=== PATIENT | male | born 1940 | race Caucasian/White ===

== ENCOUNTER 2018-06-19 09:30 | Day surgery (SDC) | payer OTHER, BC ==
[2018-06-19] MEDS ORDERED: LIDOCAINE 1% 2 ML INJ ONE (10:07)
[2018-06-19] MEDS ORDERED: LIDOCAINE 1% 2 ML INJ ID PRN (10:09)
[2018-06-19] MEDS ORDERED: LR 1,000 ML IV ONE (10:09)
--- NOTE | 2018-06-19 10:31 | PDANEPAE ---
ANE History of Present Illness J tube removal ANE Past Medical History - Cardiovascular History Hx Hypertension: No Hx Arrhythmias: No Hx Chest Pain: No Hx Coronary Artery / Peripheral Vascular Disease: No Hx CHF / Valvular Disease: No Hx Palpitations: No - Pulmonary History Hx COPD: No Hx Asthma/Reactive Airway Disease: No Hx Recent Upper Respiratory Infection: No Hx Oxygen in Use at Home: No Hx Sleep Apnea: Yes Sleep Apnea Screening Result - Last Documented: Positive Pulmonary History Comment: SUSANNE + - Neurologic History Hx Cerebrovascular Accident: No Hx Seizures: Yes Hx Dementia: No Neurologic History Comment: Parkinson's Disease. 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 - Other Health History Other Health History: bilat H/A's. glasses. implanted denture lower denture - Chronic Pain History Chronic Pain: No - Surgical History Prior Surgeries: brain tumor removal, 10 years ago. soft tissue sarcoma removal , left. cholecystectomy, 2016 ANE Review of Systems Review of Systems: - Exercise capacity METS (RN): 4 METS ANE Patient History - Allergies Allergies/Adverse Reactions: No Known Allergies Allergy (Verified 06/07/18 16:01) - Home Medications Home Medications: Aspirin 81mg (*) 06/07/18 [Last Taken 06/12/18] Azilect 06/07/18 [Last Taken 06/19/18 07:00] Donepezil HCl 06/07/18 [Last Taken 06/11/18 21:00] Glucosamine 06/07/18 [Last Taken 06/12/18] Krill Oil 06/07/18 [Last Taken 06/12/18] Magnesium 06/07/18 [Last Taken 06/12/18] Ramipril 06/07/18 [Last Taken 06/11/18 21:00] Ropinirole HCl 06/07/18 [Last Taken 06/18/18 21:00] Rytary ER 61.25 mg-245 mg Cap 06/07/18 [Last Taken 06/19/18 06:00] Tamsulosin HCl 06/07/18 [Last Taken 06/15/18] - NPO status NPO Status: no food or drink >8 hours - Anes Hx Anes Hx: no prior problems - Smoking Hx Smoking Status: Former smoker - Alcohol Use Alcohol Use: Occasionally - Family Anes Hx Family Anes Hx: none Family Hx Anesthesia Complications: none ANE Labs/Vital Signs - Vital Signs Vital Signs: reviewed preoperatively; see RN documention for details Height: 187.96 cm Weight: 104.326 kg ANE Physical Exam - Airway Neck exam: FROM Mallampati Score: Class 2 Mouth exam: normal dental/mouth exam - Pulmonary Pulmonary: no respiratory distress, clear to auscultation - Cardiovascular Cardiovascular: regular rate and rhythym, no murmur, rub, or gallop - ASA Status ASA Status: III ANE Anesthesia Plan Anesthesia Plan: GA with mask Total IV Anesthesia: Yes
--- NOTE | 2018-06-19 10:57 | PDGENHP ---
History & Physical Chief Complaint: CC: Parkinsons, requires PEG tube removal History of Present Illness: Parkinsons, Prior PEG/PEG placement. Needs endoscopic removal. Relevant Physical Exam: Lungs clear. Cardiac normal s1s2
[2018-06-19] MEDS ORDERED: PROPOFOL/EMULSION 500 MG/50 ML BOTTLE IV ONE (10:58)
[2018-06-19] MEDS ORDERED: NALOXONE HCL 0.4 MG/ML INJ IVP PRN (11:37)
--- NOTE | 2018-06-19 11:38 | POSTANESTH ---
Post Anesthetic Evaluation Cardiovascular Status: Normal, Stable, Similar to Pre-Op Cond Respiratory Status: Normal, Stable, Similar to Pre-op Cond. Level of Consciousness/Mental Status: Can Participate in Eval, Alert and Oriented Pain Control: Adequate, Prn Tx Ordered Nausea/Vomiting Control: Adequate, Prn Tx Ordered Complications Possibly Related to Anesthesia: None Noted
[2018-06-19 12:55] VITALS: BP 123/74
--- NOTE | 2018-06-27 11:08 | GIREPORT ---
[facility] Surgical Services - Endoscopy Department Patient Name: Vinnie Mendoza Procedure Date: 06/19/2018 8:06 AM Patient Type: Outpatient Attending MD/ ER Physician: Gennaro Tellez MD Procedure: Upper GI endoscopy Indications: Remove PEG-J tube (no longer needed) Providers: Gennaro Tellez MD Medicines: Propofol per Anesthesia Complications: No immediate complications. Description of Procedure: After obtaining informed consent, the endoscope was passed under direct vision. Throughout the procedure, the patient's blood pressure, pulse, and oxygen saturations were monitored continuously. The Endoscope was intro duced through the mouth, and advanced to the second part of duodenum. The [facility] er GI endoscopy was accomplished without difficulty. The patient tolerated th e procedure well. Findings: The examined esophagus was normal. The entire examined stomach was normal. There was evidence of an intact gastrostomy with a patent G-tube presen t in the gastric antrum, with J tube extending through the pylorus. The PEG required removal because it was no longer necessary. The PEG was cut externally, grasped, and removed with the scope. Removal was easily accomplished. The examined duodenum was normal. Estimated Blood Loss: Estimated blood loss: none. Post Op Diagnosis: - Normal esophagus. - Normal stomach. - Intact gastrostomy with a patent G-tube present characterized by with J tube extension. - Normal examined duodenum. - The PEG was cut externally, grasped, and removed with the scope benigno murrell it was no longer necessary. - No specimens collected. Recommendation: - Patient has a contact number available for emergencies. The signs and symptoms of potential delayed complications were discussed with the pat ient. Return to normal activities tomorrow. Written discharge instructions we re provided to the patient. - Resume previous diet. - Continue present medications. - Return to referring physician. - Thank you for allowing me to participate in the care of your patient. Attending Participation: I personally performed the entire procedure. Gennaro Tellez MD Gennaro Tellez MD 06/19/2018 11:42:18 AM This report has been signed electronicallyGennaro Tellez MD Number of Addenda: 0 Note Initiated On: 06/19/2018 8:06 AM [email or web address]
== END 2018-06-19 12:55 | disposition home or self-care (01) ==
LOC: FSGY 09:30
PROVIDERS: ATTEND Internal Medicine Gastroenterology
PROC: 0DP08UZ Removal of Feeding Device from Upper Intestinal Tract, Via Natural or Artificial Opening Endoscopic (ICD-10-PCS; principal; 2018-06-19 10:45)
DX: Z43.4 Encounter for attention to other artificial openings of digestive tract (principal); G20 Parkinson's disease
CPT/HCPCS: J2704